=== PATIENT | male | born 1970 | race African-American/Black ===

== ENCOUNTER 2020-04-22 17:13 | Inpatient (IN) ==
[2020-04-22] MEDS ORDERED: DOCUSATE SODIUM 100 MG CAPSULE PO PRN (21:00)
[2020-04-22] MEDS ORDERED: ONDANSETRON 4 MG/2 ML VIAL IV PRN (21:00)
[2020-04-23] MEDS: ACETAMINOPHEN 325 MG TABLET PO PRN ×2 (01:26→13:03)
[2020-04-23] MEDS: ALBUTEROL INHALER 18 GM INH SCH ×6 (03:46→23:49)
[2020-04-23 06:39] LABS: Basophils % 0.1 % (0.0-0.8); Hematocrit 32.1 VOL% (42.0-52.0); Hemoglobin 10.8 GM/DL (14.0-18.0); Immature Granulocytes % 1.1 %; Immature Granulocytes Absolute 0.08 #; Lymphocytes # 1.3 10*3/uL (1.4-4.0); Lymphocytes % 17.8 % (21.2-54.2); Mean Corpuscular HGB Conc 33.6 GM/DL (32-36); Mean Corpuscular Volume 83.6 FL (87-102); Mean Platelet Volume 11.2 FL (9.6-12.0); Monocytes % 5.1 % (1.7-12.7); Neutrophils % 75.9 % (38.7-73.9); Platelet Count 212 T/CUMM (130-400); Red Blood Count 3.84 MC/CUMM (3.8-5.5); Red Cell Distribution Width 15.3 % (9.3-17.3); White Blood Count 7.4 T/CUMM (4-12)
[2020-04-23 06:59] LABS: Albumin 2.3 G/DL (3.4-5.0); Bilirubin,Total 0.8 MG/DL (0.2-1.0); Calcium 8.8 MG/DL (8.5-10.1); Osmolality,Calculated 277.8 MOS/KG (273-304)
[2020-04-23 07:02] LABS: Ferritin 1049.9 ng/ml (26-388)
[2020-04-23] MEDS ORDERED: ZINC SULFATE 220 MG CAPSULE PO SCH (09:00)
[2020-04-23] MEDS: ENOXAPARIN 40 MG/0.4 ML SYRINGE SUBCUT SCH (09:37)
[2020-04-23 13:36] LABS: Band Neutrophils 4 % (0-10); Lymphocytes 17 % (20-55); Platelet Estimate Adequate; Segmented Neutrophils 77 % (50-85); Total Cells Counted 100
[2020-04-23 13:37] LABS: Hypochromasia 2+; Microcytosis 1+; Polychromasia Slight
[2020-04-23] MEDS: HYDROXYCHLOROQUINE 200 MG TABLET PO SCH ×2 (13:51→23:51)
[2020-04-23] MEDS: cefTRIAXone 1,000 MG in SYRINGE 1 EACH IV SCH (21:55)
[2020-04-23] MEDS: ASCORBIC ACID 500 MG TABLET PO SCH (23:51)
[2020-04-24] MEDS: ALBUTEROL INHALER 18 GM INH SCH ×6 (03:00→22:42)
[2020-04-24 06:31] LABS: Basophils % 0.3 % (0.0-0.8); Eosinophils % 0.3 % (0.00-10.9); Hematocrit 33.4 VOL% (42.0-52.0); Hemoglobin 11.2 GM/DL (14.0-18.0); Immature Granulocytes % 1.2 %; Immature Granulocytes Absolute 0.09 #; Lymphocytes # 1.6 10*3/uL (1.4-4.0); Lymphocytes % 21.3 % (21.2-54.2); Mean Corpuscular HGB Conc 33.5 GM/DL (32-36); Mean Corpuscular Volume 83.7 FL (87-102); Neutrophils % 69.9 % (38.7-73.9); Platelet Count 247 T/CUMM (130-400); Red Blood Count 3.99 MC/CUMM (3.8-5.5); Red Cell Distribution Width 15.2 % (9.3-17.3); White Blood Count 7.4 T/CUMM (4-12)
[2020-04-24 07:04] LABS: Band Neutrophils 2 % (0-10); Hypochromasia 1+; Lymphocytes 30 % (20-55); Segmented Neutrophils 65 % (50-85); Total Cells Counted 100
[2020-04-24 07:05] LABS: Microcytosis 1+; Platelet Estimate Normal
[2020-04-24] MEDS ORDERED: CHOLECALCIFEROL 1,000 UNIT TABLET PO SCH (09:00)
[2020-04-24] MEDS: ENOXAPARIN 40 MG/0.4 ML SYRINGE SUBCUT SCH (09:07)
[2020-04-24 09:29] LABS: Ferritin 1134.3 ng/ml (26-388)
[2020-04-24] MEDS: HYDROXYCHLOROQUINE 200 MG TABLET PO SCH (13:35)
[2020-04-24] MEDS: ASCORBIC ACID 500 MG TABLET PO SCH (13:36)
[2020-04-24] MEDS: DEXTROSE 5% 1,000 ML IV SCH (14:58)
[2020-04-24] MEDS: ACETAMINOPHEN 325 MG TABLET PO PRN (16:49)
[2020-04-24] MEDS: cefTRIAXone 1,000 MG in SYRINGE 1 EACH IV SCH (22:35)
[2020-04-25] MEDS: ALBUTEROL INHALER 18 GM INH SCH ×6 (03:23→23:45)
[2020-04-25] MEDS: ACETAMINOPHEN 325 MG TABLET PO PRN ×3 (05:25→20:45)
[2020-04-25] MEDS: CYCLOBENZAPRINE 10 MG TABLET PO PRN (05:26)
[2020-04-25 07:06] LABS: Ferritin 1149.4 ng/ml (26-388)
[2020-04-25 07:08] LABS: Risk Ratio 8.47
[2020-04-25] MEDS: DEXTROSE 5% 1,000 ML IV SCH ×2 (08:40→22:42)
[2020-04-25] MEDS: ENOXAPARIN 40 MG/0.4 ML SYRINGE SUBCUT SCH (08:41)
[2020-04-25] MEDS: HYDROXYCHLOROQUINE 200 MG TABLET PO SCH (12:47)
[2020-04-25] MEDS: cefTRIAXone 1,000 MG in SYRINGE 1 EACH IV SCH (20:41)
[2020-04-25] MEDS: APIXABAN 5 MG TABLET PO SCH (20:45)
[2020-04-26] MEDS: ALBUTEROL INHALER 18 GM INH SCH ×6 (03:54→23:42)
[2020-04-26] MEDS: ACETAMINOPHEN 325 MG TABLET PO PRN ×3 (04:49→21:14)
[2020-04-26 06:16] LABS: Basophils % 0.2 % (0.0-0.8); Eosinophils % 0.1 % (0.00-10.9); Hematocrit 33.6 VOL% (42.0-52.0); Hemoglobin 11.5 GM/DL (14.0-18.0); Immature Granulocytes % 1.2 %; Immature Granulocytes Absolute 0.11 #; Lymphocytes # 1.2 10*3/uL (1.4-4.0); Lymphocytes % 13.1 % (21.2-54.2); Mean Corpuscular HGB Conc 34.2 GM/DL (32-36); Mean Corpuscular Volume 81.2 FL (87-102); Mean Platelet Volume 11.3 FL (9.6-12.0); Monocytes % 7.4 % (1.7-12.7); Platelet Count 348 T/CUMM (130-400); Red Blood Count 4.14 MC/CUMM (3.8-5.5); Red Cell Distribution Width 14.8 % (9.3-17.3); White Blood Count 9.2 T/CUMM (4-12)
[2020-04-26 06:36] LABS: Calcium 8.7 MG/DL (8.5-10.1); Osmolality,Calculated 267.4 MOS/KG (273-304)
[2020-04-26 06:43] LABS: Band Neutrophils 1 % (0-10); Ferritin 1413.2 ng/ml (26-388); Lymphocytes 8 % (20-55); Nucleated Red Blood Cells 1 (0-5); Platelet Estimate Adequate; Segmented Neutrophils 88 % (50-85); Total Cells Counted 100
[2020-04-26 06:44] LABS: Hypochromasia Slight; Microcytosis 1+
[2020-04-26] MEDS: APIXABAN 5 MG TABLET PO SCH ×2 (08:08→21:12)
[2020-04-26] MEDS: DEXTROSE 5% 1,000 ML IV SCH (12:26)
[2020-04-26] MEDS: amLODIPine 10 MG TABLET PO SCH (16:30)
[2020-04-26] MEDS: cefTRIAXone 1,000 MG in SYRINGE 1 EACH IV SCH (21:12)
[2020-04-26] MEDS: CYCLOBENZAPRINE 10 MG TABLET PO PRN (21:13)
[2020-04-27] MEDS: ALBUTEROL INHALER 18 GM INH SCH ×5 (04:46→20:16)
[2020-04-27 05:04] LABS: Basophils % 0.2 % (0.0-0.8); Eosinophils % 0.1 % (0.00-10.9); Hematocrit 30.4 VOL% (42.0-52.0); Hemoglobin 10.3 GM/DL (14.0-18.0); Immature Granulocytes % 0.9 %; Immature Granulocytes Absolute 0.11 #; Lymphocytes # 1.4 10*3/uL (1.4-4.0); Lymphocytes % 11.6 % (21.2-54.2); Mean Corpuscular HGB Conc 33.9 GM/DL (32-36); Mean Corpuscular Volume 81.7 FL (87-102); Mean Platelet Volume 11.1 FL (9.6-12.0); Monocytes % 7.4 % (1.7-12.7); Neutrophils % 79.8 % (38.7-73.9); Platelet Count 364 T/CUMM (130-400); Red Blood Count 3.72 MC/CUMM (3.8-5.5); Red Cell Distribution Width 15.3 % (9.3-17.3); White Blood Count 12.3 T/CUMM (4-12)
[2020-04-27 05:46] LABS: Hypochromasia 1+; Ovalocytes Slight; Platelet Estimate Adequate
[2020-04-27 05:47] LABS: Microcytosis 1+
[2020-04-27 05:48] LABS: Ferritin 1156.6 ng/ml (26-388)
[2020-04-27 06:09] LABS: Calcium 8.7 MG/DL (8.5-10.1); Osmolality,Calculated 270.2 MOS/KG (273-304)
[2020-04-27] MEDS: CHOLECALCIFEROL 1,000 UNIT TABLET PO SCH (09:37)
[2020-04-27] MEDS: APIXABAN 5 MG TABLET PO SCH ×2 (09:37→20:17)
[2020-04-27] MEDS: amLODIPine 10 MG TABLET PO SCH (09:37)
[2020-04-27] MEDS: ACETAMINOPHEN 325 MG TABLET PO PRN ×2 (11:01→17:31)
[2020-04-27] MEDS: DEXTROSE 5% 1,000 ML IV SCH (15:33)
[2020-04-27] MEDS: cefTRIAXone 1,000 MG in SYRINGE 1 EACH IV SCH (20:17)
[2020-04-28] MEDS: ALBUTEROL INHALER 18 GM INH SCH ×7 (01:00→23:34)
[2020-04-28] MEDS: DEXTROSE 5% 1,000 ML IV SCH ×2 (01:23→14:58)
[2020-04-28 07:19] LABS: Basophils % 0.2 % (0.0-0.8); Eosinophils % 0.1 % (0.00-10.9); Hematocrit 31.2 VOL% (42.0-52.0); Hemoglobin 10.7 GM/DL (14.0-18.0); Immature Granulocytes % 1.3 %; Immature Granulocytes Absolute 0.14 #; Lymphocytes # 0.9 10*3/uL (1.4-4.0); Lymphocytes % 8.6 % (21.2-54.2); Mean Corpuscular HGB Conc 34.3 GM/DL (32-36); Mean Corpuscular Volume 81.9 FL (87-102); Mean Platelet Volume 10.8 FL (9.6-12.0); Monocytes % 8.7 % (1.7-12.7); Neutrophils % 81.1 % (38.7-73.9); Platelet Count 372 T/CUMM (130-400); Red Blood Count 3.81 MC/CUMM (3.8-5.5); Red Cell Distribution Width 15.2 % (9.3-17.3); White Blood Count 10.9 T/CUMM (4-12)
[2020-04-28 07:32] LABS: Calcium 9.1 MG/DL (8.5-10.1); Osmolality,Calculated 261.9 MOS/KG (273-304)
[2020-04-28 07:47] LABS: Ferritin 1711.6 ng/ml (26-388)
[2020-04-28 08:12] LABS: Platelet Estimate Increased; Schistocytes Slight; Target Cells Slight
[2020-04-28] MEDS: APIXABAN 5 MG TABLET PO SCH ×2 (08:15→20:05)
[2020-04-28] MEDS: CHOLECALCIFEROL 1,000 UNIT TABLET PO SCH (08:15)
[2020-04-28] MEDS: amLODIPine 10 MG TABLET PO SCH (08:15)
[2020-04-28] MEDS: ATORVASTATIN 40 MG TABLET PO SCH (08:15)
[2020-04-28] MEDS: ACETAMINOPHEN 325 MG TABLET PO PRN ×3 (08:20→20:06)
[2020-04-29] MEDS: ACETAMINOPHEN 325 MG TABLET PO PRN ×3 (01:20→20:29)
[2020-04-29] MEDS: DEXTROSE 5% 1,000 ML IV SCH ×2 (04:26→18:43)
[2020-04-29] MEDS: ALBUTEROL INHALER 18 GM INH SCH ×6 (04:26→22:04)
[2020-04-29 05:32] LABS: Basophils % 0.2 % (0.0-0.8); Eosinophils % 0.1 % (0.00-10.9); Hemoglobin 9.6 GM/DL (14.0-18.0); Immature Granulocytes % 1.3 %; Immature Granulocytes Absolute 0.17 #; Lymphocytes # 1.4 10*3/uL (1.4-4.0); Lymphocytes % 11.1 % (21.2-54.2); Mean Corpuscular HGB Conc 34.3 GM/DL (32-36); Mean Corpuscular Volume 80.9 FL (87-102); Mean Platelet Volume 11.4 FL (9.6-12.0); Neutrophils % 77.3 % (38.7-73.9); Platelet Count 389 T/CUMM (130-400); Red Blood Count 3.46 MC/CUMM (3.8-5.5); Red Cell Distribution Width 15.4 % (9.3-17.3); White Blood Count 12.6 T/CUMM (4-12)
[2020-04-29 05:55] LABS: Calcium 8.8 MG/DL (8.5-10.1); Osmolality,Calculated 265.7 MOS/KG (273-304)
[2020-04-29] MEDS: amLODIPine 10 MG TABLET PO SCH (08:40)
[2020-04-29] MEDS: CHOLECALCIFEROL 1,000 UNIT TABLET PO SCH (08:40)
[2020-04-29] MEDS: APIXABAN 5 MG TABLET PO SCH ×2 (08:40→20:29)
[2020-04-29] MEDS: CYCLOBENZAPRINE 10 MG TABLET PO PRN (08:40)
[2020-04-29] MEDS: ATORVASTATIN 40 MG TABLET PO SCH (08:40)
[2020-04-29] MEDS: methylPREDNISolone SOD SUC 125 MG/2 ML VIAL IV SCH (12:25)
[2020-04-30] MEDS: ALBUTEROL INHALER 18 GM INH SCH ×5 (04:18→20:10)
[2020-04-30] MEDS: DEXTROSE 5% 1,000 ML IV SCH ×2 (05:24→20:10)
[2020-04-30 06:50] LABS: Basophils % 0.1 % (0.0-0.8); Hematocrit 29.1 VOL% (42.0-52.0); Hemoglobin 9.7 GM/DL (14.0-18.0); Immature Granulocytes % 0.9 %; Immature Granulocytes Absolute 0.13 #; Lymphocytes # 0.9 10*3/uL (1.4-4.0); Lymphocytes % 6.4 % (21.2-54.2); Mean Corpuscular HGB Conc 33.3 GM/DL (32-36); Mean Corpuscular Volume 82.9 FL (87-102); Mean Platelet Volume 11.1 FL (9.6-12.0); Monocytes % 6.8 % (1.7-12.7); Neutrophils % 85.8 % (38.7-73.9); Platelet Count 445 T/CUMM (130-400); Red Blood Count 3.51 MC/CUMM (3.8-5.5); Red Cell Distribution Width 15.5 % (9.3-17.3); White Blood Count 14.1 T/CUMM (4-12)
[2020-04-30 07:25] LABS: Calcium 8.9 MG/DL (8.5-10.1); Osmolality,Calculated 268.8 MOS/KG (273-304)
[2020-04-30] MEDS: amLODIPine 10 MG TABLET PO SCH (09:05)
[2020-04-30] MEDS: ATORVASTATIN 40 MG TABLET PO SCH (09:05)
[2020-04-30] MEDS: CHOLECALCIFEROL 1,000 UNIT TABLET PO SCH (09:05)
[2020-04-30] MEDS: APIXABAN 5 MG TABLET PO SCH ×2 (09:05→20:10)
[2020-04-30] MEDS: methylPREDNISolone SOD SUC 125 MG/2 ML VIAL IV SCH (09:05)
[2020-04-30 09:48] LABS: Ferritin 2339.8 ng/ml (26-388)
[2020-04-30] MEDS: ACETAMINOPHEN 325 MG TABLET PO PRN (20:10)
[2020-05-01] MEDS: ALBUTEROL INHALER 18 GM INH SCH ×7 (00:33→22:41)
[2020-05-01 05:26] LABS: Basophils % 0.1 % (0.0-0.8); Hematocrit 27.8 VOL% (42.0-52.0); Hemoglobin 9.3 GM/DL (14.0-18.0); Immature Granulocytes % 0.9 %; Lymphocytes # 1.3 10*3/uL (1.4-4.0); Lymphocytes % 11.4 % (21.2-54.2); Mean Corpuscular HGB Conc 33.5 GM/DL (32-36); Mean Platelet Volume 11.1 FL (9.6-12.0); Monocytes % 7.4 % (1.7-12.7); Neutrophils % 80.2 % (38.7-73.9); Platelet Count 468 T/CUMM (130-400); Red Blood Count 3.35 MC/CUMM (3.8-5.5); Red Cell Distribution Width 15.7 % (9.3-17.3); White Blood Count 11.7 T/CUMM (4-12)
[2020-05-01 05:54] LABS: Calcium 9.1 MG/DL (8.5-10.1); Osmolality,Calculated 278.4 MOS/KG (273-304)
[2020-05-01 05:55] LABS: Hypochromasia 1+; Lymphocytes 11 % (20-55); Platelet Estimate Adequate; Segmented Neutrophils 83 % (50-85); Total Cells Counted 100
[2020-05-01 05:56] LABS: Ovalocytes Slight
[2020-05-01 07:11] LABS: Ferritin 2292.8 ng/ml (26-388)
[2020-05-01] MEDS: APIXABAN 5 MG TABLET PO SCH (09:34)
[2020-05-01] MEDS: predniSONE 20 MG TABLET PO SCH (09:34)
[2020-05-01] MEDS: amLODIPine 10 MG TABLET PO SCH (09:35)
[2020-05-01] MEDS: ATORVASTATIN 40 MG TABLET PO SCH (09:35)
[2020-05-01] MEDS: CHOLECALCIFEROL 1,000 UNIT TABLET PO SCH (09:35)
[2020-05-01] MEDS: allopurinoL 100 MG TABLET PO SCH (09:35)
[2020-05-01] MEDS: DEXTROSE 5% 1,000 ML IV SCH (12:57)
[2020-05-01] MEDS: WARFARIN 5 MG TABLET PO SCH (21:17)
[2020-05-01] MEDS: ENOXAPARIN 100 MG/ML SYRINGE SUBCUT SCH (21:18)
[2020-05-01] MEDS: CYCLOBENZAPRINE 10 MG TABLET PO PRN (21:18)
[2020-05-02] MEDS: hydrALAZINE 20 MG/1 ML VIAL IV PRN (00:57)
[2020-05-02] MEDS: ACETAMINOPHEN 325 MG TABLET PO PRN (00:58)
[2020-05-02] MEDS: ALBUTEROL INHALER 18 GM INH SCH ×2 (03:50→08:26)
[2020-05-02 05:37] LABS: Basophils % 0.1 % (0.0-0.8); Hematocrit 29.5 VOL% (42.0-52.0); Immature Granulocytes % 1.1 %; Immature Granulocytes Absolute 0.12 #; Lymphocytes # 2.1 10*3/uL (1.4-4.0); Lymphocytes % 19.4 % (21.2-54.2); Mean Corpuscular HGB Conc 33.9 GM/DL (32-36); Mean Corpuscular Volume 82.2 FL (87-102); Mean Platelet Volume 11.3 FL (9.6-12.0); Monocytes % 9.1 % (1.7-12.7); Neutrophils % 70.3 % (38.7-73.9); Platelet Count 531 T/CUMM (130-400); Red Blood Count 3.59 MC/CUMM (3.8-5.5); Red Cell Distribution Width 15.7 % (9.3-17.3); White Blood Count 10.9 T/CUMM (4-12)
[2020-05-02 06:04] LABS: Hypochromasia 1+; Platelet Estimate Increased
[2020-05-02 06:09] LABS: Calcium 9.2 MG/DL (8.5-10.1); Osmolality,Calculated 276.2 MOS/KG (273-304)
[2020-05-02] MEDS: allopurinoL 100 MG TABLET PO SCH (08:26)
[2020-05-02] MEDS: predniSONE 20 MG TABLET PO SCH (08:26)
[2020-05-02] MEDS: amLODIPine 10 MG TABLET PO SCH (08:26)
[2020-05-02] MEDS: ATORVASTATIN 40 MG TABLET PO SCH (08:26)
[2020-05-02] MEDS: ENOXAPARIN 100 MG/ML SYRINGE SUBCUT SCH ×2 (08:27→20:54)
[2020-05-02] MEDS: CHOLECALCIFEROL 1,000 UNIT TABLET PO SCH (08:27)
[2020-05-02] MEDS ORDERED: ALBUTEROL INHALER 18 GM INH PRN (10:11)
[2020-05-02] MEDS: WARFARIN 5 MG TABLET PO SCH (20:54)
[2020-05-03] MEDS: hydrALAZINE 20 MG/1 ML VIAL IV PRN (06:15)
[2020-05-03 07:03] LABS: Basophils % 0.2 % (0.0-0.8); Eosinophils % 0.2 % (0.00-10.9); Hematocrit 33.9 VOL% (42.0-52.0); Hemoglobin 11.4 GM/DL (14.0-18.0); Immature Granulocytes Absolute 0.13 #; Lymphocytes # 2.9 10*3/uL (1.4-4.0); Lymphocytes % 21.7 % (21.2-54.2); Mean Corpuscular HGB Conc 33.6 GM/DL (32-36); Mean Corpuscular Volume 83.1 FL (87-102); Monocytes % 9.2 % (1.7-12.7); Neutrophils % 67.7 % (38.7-73.9); Platelet Count 563 T/CUMM (130-400); Red Blood Count 4.08 MC/CUMM (3.8-5.5); Red Cell Distribution Width 15.8 % (9.3-17.3); White Blood Count 13.3 T/CUMM (4-12)
[2020-05-03 07:05] LABS: INR 1.2; PT Patient Result 12.5 SECS (9.8-11.9)
[2020-05-03 07:19] LABS: Calcium 9.6 MG/DL (8.5-10.1); Osmolality,Calculated 273.2 MOS/KG (273-304)
[2020-05-03 07:29] LABS: Lymphocytes 19 % (20-55); Platelet Estimate Increased; Segmented Neutrophils 72 % (50-85); Total Cells Counted 100
[2020-05-03 07:30] LABS: Hypochromasia 1+; Microcytosis Slight; Ovalocytes Slight
[2020-05-03] MEDS: CHOLECALCIFEROL 1,000 UNIT TABLET PO SCH ×2 (07:55→08:37)
[2020-05-03] MEDS: ATORVASTATIN 40 MG TABLET PO SCH ×2 (07:56→08:37)
[2020-05-03] MEDS: allopurinoL 100 MG TABLET PO SCH ×2 (07:56→08:37)
[2020-05-03] MEDS: amLODIPine 10 MG TABLET PO SCH ×2 (07:56→08:37)
[2020-05-03] MEDS: ENOXAPARIN 100 MG/ML SYRINGE SUBCUT SCH ×3 (07:57→20:40)
[2020-05-03] MEDS: CYCLOBENZAPRINE 10 MG TABLET PO PRN (12:30)
[2020-05-03] MEDS: ACETAMINOPHEN 325 MG TABLET PO PRN (20:40)
[2020-05-03] MEDS: WARFARIN 5 MG TABLET PO SCH (20:40)
[2020-05-04] MEDS: ACETAMINOPHEN 325 MG TABLET PO PRN ×2 (04:45→20:53)
[2020-05-04 06:02] LABS: Basophils % 0.2 % (0.0-0.8); Eosinophils % 0.2 % (0.00-10.9); Hematocrit 33.4 VOL% (42.0-52.0); Immature Granulocytes % 0.7 %; Immature Granulocytes Absolute 0.08 #; Lymphocytes # 1.8 10*3/uL (1.4-4.0); Lymphocytes % 16.2 % (21.2-54.2); Mean Corpuscular HGB Conc 32.9 GM/DL (32-36); Mean Corpuscular Volume 83.5 FL (87-102); Mean Platelet Volume 10.8 FL (9.6-12.0); Monocytes % 10.4 % (1.7-12.7); Neutrophils % 72.3 % (38.7-73.9); Platelet Count 563 T/CUMM (130-400); Red Cell Distribution Width 15.9 % (9.3-17.3); White Blood Count 11.4 T/CUMM (4-12)
[2020-05-04 06:25] LABS: INR 1.5; PT Patient Result 15.6 SECS (9.8-11.9)
[2020-05-04 06:30] LABS: Calcium 9.5 MG/DL (8.5-10.1); Osmolality,Calculated 273.4 MOS/KG (273-304)
[2020-05-04] MEDS: amLODIPine 10 MG TABLET PO SCH (08:57)
[2020-05-04] MEDS: CHOLECALCIFEROL 1,000 UNIT TABLET PO SCH (08:57)
[2020-05-04] MEDS: ATORVASTATIN 40 MG TABLET PO SCH (08:57)
[2020-05-04] MEDS: ENOXAPARIN 100 MG/ML SYRINGE SUBCUT SCH ×2 (08:58→20:43)
[2020-05-04] MEDS: allopurinoL 100 MG TABLET PO SCH (08:58)
[2020-05-04] MEDS ORDERED: LOSARTAN 50 MG TABLET ONE (09:01)
[2020-05-04] MEDS: LOSARTAN 50 MG TABLET PO SCH (09:02)
[2020-05-04] MEDS: WARFARIN 5 MG TABLET PO SCH (20:43)
[2020-05-04] MEDS ORDERED: carvediloL 3.125 MG TABLET PO SCH (21:00)
[2020-05-05 06:12] LABS: Basophils % 0.3 % (0.0-0.8); Eosinophils # 0.1 10*3/uL (0.0-0.87); Eosinophils % 0.5 % (0.00-10.9); Hematocrit 29.9 VOL% (42.0-52.0); Hemoglobin 10.2 GM/DL (14.0-18.0); Immature Granulocytes % 0.9 %; Immature Granulocytes Absolute 0.11 #; Lymphocytes % 17.2 % (21.2-54.2); Mean Corpuscular HGB Conc 34.1 GM/DL (32-36); Mean Corpuscular Volume 81.9 FL (87-102); Mean Platelet Volume 10.7 FL (9.6-12.0); Monocytes % 10.9 % (1.7-12.7); Neutrophils % 70.2 % (38.7-73.9); Platelet Count 483 T/CUMM (130-400); Red Blood Count 3.65 MC/CUMM (3.8-5.5); Red Cell Distribution Width 15.9 % (9.3-17.3); White Blood Count 11.9 T/CUMM (4-12)
[2020-05-05 06:24] LABS: INR 1.7; PT Patient Result 17.5 SECS (9.8-11.9)
[2020-05-05 06:33] LABS: Calcium 9.4 MG/DL (8.5-10.1); Osmolality,Calculated 272.4 MOS/KG (273-304)
[2020-05-05] MEDS: amLODIPine 10 MG TABLET PO SCH (09:56)
[2020-05-05] MEDS: CHOLECALCIFEROL 1,000 UNIT TABLET PO SCH (09:56)
[2020-05-05] MEDS: LOSARTAN 50 MG TABLET PO SCH (09:56)
[2020-05-05] MEDS: carvediloL 6.25 MG TABLET PO SCH ×2 (09:56→20:01)
[2020-05-05] MEDS: ATORVASTATIN 40 MG TABLET PO SCH (09:56)
[2020-05-05] MEDS: allopurinoL 100 MG TABLET PO SCH (09:56)
[2020-05-05] MEDS: ENOXAPARIN 100 MG/ML SYRINGE SUBCUT SCH ×2 (09:56→20:01)
[2020-05-05] MEDS: WARFARIN 5 MG TABLET PO SCH (20:01)
[2020-05-05] MEDS: ACETAMINOPHEN 325 MG TABLET PO PRN (20:01)
[2020-05-06 06:16] LABS: Basophils % 0.3 % (0.0-0.8); Eosinophils # 0.1 10*3/uL (0.0-0.87); Eosinophils % 0.7 % (0.00-10.9); Hematocrit 28.6 VOL% (42.0-52.0); Hemoglobin 9.7 GM/DL (14.0-18.0); Immature Granulocytes % 1.1 %; Immature Granulocytes Absolute 0.13 #; Lymphocytes # 1.7 10*3/uL (1.4-4.0); Lymphocytes % 14.8 % (21.2-54.2); Mean Corpuscular HGB Conc 33.9 GM/DL (32-36); Mean Corpuscular Volume 82.9 FL (87-102); Mean Platelet Volume 10.5 FL (9.6-12.0); Monocytes % 10.5 % (1.7-12.7); Neutrophils % 72.6 % (38.7-73.9); Platelet Count 472 T/CUMM (130-400); Red Blood Count 3.45 MC/CUMM (3.8-5.5); Red Cell Distribution Width 16.1 % (9.3-17.3); White Blood Count 11.8 T/CUMM (4-12)
[2020-05-06 06:23] LABS: Calcium 9.5 MG/DL (8.5-10.1); Osmolality,Calculated 274.4 MOS/KG (273-304)
[2020-05-06 06:25] LABS: INR 1.8; PT Patient Result 18.4 SECS (9.8-11.9)
[2020-05-06] MEDS: CHOLECALCIFEROL 1,000 UNIT TABLET PO SCH (09:19)
[2020-05-06] MEDS: LOSARTAN 50 MG TABLET PO SCH (09:19)
[2020-05-06] MEDS: carvediloL 6.25 MG TABLET PO SCH ×2 (09:19→20:13)
[2020-05-06] MEDS: amLODIPine 10 MG TABLET PO SCH (09:19)
[2020-05-06] MEDS: ENOXAPARIN 100 MG/ML SYRINGE SUBCUT SCH ×2 (09:20→20:13)
[2020-05-06] MEDS: allopurinoL 100 MG TABLET PO SCH (09:20)
[2020-05-06] MEDS: ATORVASTATIN 40 MG TABLET PO SCH (09:20)
[2020-05-06] MEDS: ACETAMINOPHEN 325 MG TABLET PO PRN ×3 (09:20→20:13)
[2020-05-06] MEDS: WARFARIN 5 MG TABLET PO SCH (20:13)
[2020-05-06] MEDS: CYCLOBENZAPRINE 10 MG TABLET PO PRN (20:13)
[2020-05-07] MEDS: ACETAMINOPHEN 325 MG TABLET PO PRN ×5 (00:35→21:15)
[2020-05-07 05:47] LABS: Basophils % 0.2 % (0.0-0.8); Eosinophils # 0.1 10*3/uL (0.0-0.87); Eosinophils % 0.6 % (0.00-10.9); Hematocrit 26.8 VOL% (42.0-52.0); Hemoglobin 8.7 GM/DL (14.0-18.0); Immature Granulocytes % 0.7 %; Immature Granulocytes Absolute 0.08 #; Lymphocytes # 1.8 10*3/uL (1.4-4.0); Lymphocytes % 15.9 % (21.2-54.2); Mean Corpuscular HGB Conc 32.5 GM/DL (32-36); Mean Corpuscular Volume 83.8 FL (87-102); Mean Platelet Volume 10.5 FL (9.6-12.0); Monocytes % 11.4 % (1.7-12.7); Neutrophils % 71.2 % (38.7-73.9); Platelet Count 419 T/CUMM (130-400); Red Cell Distribution Width 15.8 % (9.3-17.3); White Blood Count 11.2 T/CUMM (4-12)
[2020-05-07 06:04] LABS: INR 2.4
[2020-05-07 06:05] LABS: PT Patient Result 24.5 SECS (9.8-11.9)
[2020-05-07 06:13] LABS: Calcium 9.2 MG/DL (8.5-10.1); Osmolality,Calculated 277.2 MOS/KG (273-304)
[2020-05-07] MEDS: amLODIPine 10 MG TABLET PO SCH (09:02)
[2020-05-07] MEDS: CHOLECALCIFEROL 1,000 UNIT TABLET PO SCH (09:02)
[2020-05-07] MEDS: carvediloL 6.25 MG TABLET PO SCH ×2 (09:02→21:15)
[2020-05-07] MEDS: ATORVASTATIN 40 MG TABLET PO SCH (09:02)
[2020-05-07] MEDS: LOSARTAN 50 MG TABLET PO SCH (09:02)
[2020-05-07] MEDS: allopurinoL 100 MG TABLET PO SCH (09:02)
[2020-05-07] MEDS: WARFARIN 5 MG TABLET PO SCH (21:15)
[2020-05-07] MEDS: CYCLOBENZAPRINE 10 MG TABLET PO PRN (21:15)
[2020-05-08] MEDS: ACETAMINOPHEN 325 MG TABLET PO PRN ×2 (00:45→21:25)
[2020-05-08 05:43] LABS: Basophils % 0.2 % (0.0-0.8); Eosinophils # 0.1 10*3/uL (0.0-0.87); Eosinophils % 0.7 % (0.00-10.9); Hemoglobin 9.4 GM/DL (14.0-18.0); Immature Granulocytes % 0.4 %; Immature Granulocytes Absolute 0.04 #; Lymphocytes # 1.5 10*3/uL (1.4-4.0); Lymphocytes % 14.9 % (21.2-54.2); Mean Corpuscular HGB Conc 32.4 GM/DL (32-36); Mean Corpuscular Volume 83.8 FL (87-102); Mean Platelet Volume 10.1 FL (9.6-12.0); Monocytes % 9.2 % (1.7-12.7); Neutrophils % 74.6 % (38.7-73.9); Platelet Count 430 T/CUMM (130-400); Red Blood Count 3.46 MC/CUMM (3.8-5.5); Red Cell Distribution Width 15.9 % (9.3-17.3)
[2020-05-08 05:54] LABS: INR 2.5
[2020-05-08 05:56] LABS: PT Patient Result 25.8 SECS (9.8-11.9)
[2020-05-08 06:01] LABS: Calcium 9.5 MG/DL (8.5-10.1); Osmolality,Calculated 267.8 MOS/KG (273-304)
[2020-05-08] MEDS: carvediloL 12.5 MG TABLET PO SCH ×2 (08:48→21:25)
[2020-05-08] MEDS: ATORVASTATIN 40 MG TABLET PO SCH (08:49)
[2020-05-08] MEDS: LOSARTAN 50 MG TABLET PO SCH (08:49)
[2020-05-08] MEDS: amLODIPine 10 MG TABLET PO SCH (08:49)
[2020-05-08] MEDS: CHOLECALCIFEROL 1,000 UNIT TABLET PO SCH (08:49)
[2020-05-08] MEDS: allopurinoL 100 MG TABLET PO SCH (08:49)
[2020-05-08] MEDS: CYCLOBENZAPRINE 10 MG TABLET PO PRN (21:24)
[2020-05-08] MEDS: WARFARIN 5 MG TABLET PO SCH (21:25)
[2020-05-09 05:45] LABS: Basophils % 0.3 % (0.0-0.8); Eosinophils % 0.3 % (0.00-10.9); Hematocrit 26.3 VOL% (42.0-52.0); Hemoglobin 8.7 GM/DL (14.0-18.0); Immature Granulocytes % 0.6 %; Immature Granulocytes Absolute 0.05 #; Lymphocytes # 1.3 10*3/uL (1.4-4.0); Lymphocytes % 13.8 % (21.2-54.2); Mean Corpuscular HGB Conc 33.1 GM/DL (32-36); Mean Corpuscular Volume 82.7 FL (87-102); Mean Platelet Volume 10.2 FL (9.6-12.0); Monocytes % 8.6 % (1.7-12.7); Neutrophils % 76.4 % (38.7-73.9); Platelet Count 404 T/CUMM (130-400); Red Blood Count 3.18 MC/CUMM (3.8-5.5); Red Cell Distribution Width 15.7 % (9.3-17.3); White Blood Count 9.1 T/CUMM (4-12)
[2020-05-09 07:14] LABS: Calcium 9.3 MG/DL (8.5-10.1); Osmolality,Calculated 271.4 MOS/KG (273-304)
[2020-05-09] MEDS: CHOLECALCIFEROL 1,000 UNIT TABLET PO SCH (09:32)
[2020-05-09] MEDS: LOSARTAN 50 MG TABLET PO SCH (09:32)
[2020-05-09] MEDS: allopurinoL 100 MG TABLET PO SCH (09:32)
[2020-05-09] MEDS: ATORVASTATIN 40 MG TABLET PO SCH (09:33)
[2020-05-09] MEDS: carvediloL 12.5 MG TABLET PO SCH ×2 (09:33→21:14)
[2020-05-09] MEDS: amLODIPine 10 MG TABLET PO SCH (09:33)
[2020-05-09] MEDS: ACETAMINOPHEN 325 MG TABLET PO PRN ×2 (13:19→21:14)
[2020-05-09] MEDS: WARFARIN 5 MG TABLET PO SCH (21:14)
[2020-05-10] MEDS: ACETAMINOPHEN 325 MG TABLET PO PRN ×2 (04:30→16:06)
[2020-05-10 05:34] LABS: Basophils # 0.1 10*3/uL (0.0-0.2); Basophils % 0.4 % (0.0-0.8); Eosinophils # 0.1 10*3/uL (0.0-0.87); Eosinophils % 0.6 % (0.00-10.9); Hematocrit 25.5 VOL% (42.0-52.0); Hemoglobin 8.5 GM/DL (14.0-18.0); Immature Granulocytes % 0.7 %; Immature Granulocytes Absolute 0.08 #; Lymphocytes # 1.4 10*3/uL (1.4-4.0); Lymphocytes % 11.5 % (21.2-54.2); Mean Corpuscular HGB Conc 33.3 GM/DL (32-36); Mean Corpuscular Volume 83.1 FL (87-102); Mean Platelet Volume 10.1 FL (9.6-12.0); Monocytes % 6.5 % (1.7-12.7); Neutrophils % 80.3 % (38.7-73.9); Platelet Count 405 T/CUMM (130-400); Red Blood Count 3.07 MC/CUMM (3.8-5.5); Red Cell Distribution Width 15.8 % (9.3-17.3); White Blood Count 11.8 T/CUMM (4-12)
[2020-05-10 05:54] LABS: Calcium 9.3 MG/DL (8.5-10.1); Osmolality,Calculated 270.5 MOS/KG (273-304)
[2020-05-10 09:09] LABS: INR 3.6; PT Patient Result 35.8 SECS (9.8-11.9)
[2020-05-10] MEDS: CHOLECALCIFEROL 1,000 UNIT TABLET PO SCH (09:19)
[2020-05-10] MEDS: amLODIPine 10 MG TABLET PO SCH (09:19)
[2020-05-10] MEDS: ATORVASTATIN 40 MG TABLET PO SCH (09:20)
[2020-05-10] MEDS: LOSARTAN 50 MG TABLET PO SCH (09:20)
[2020-05-10] MEDS: allopurinoL 100 MG TABLET PO SCH (09:20)
[2020-05-10] MEDS: carvediloL 12.5 MG TABLET PO SCH ×2 (09:20→21:54)
[2020-05-10] MEDS: CYCLOBENZAPRINE 10 MG TABLET PO PRN (16:06)
[2020-05-11 06:23] LABS: Uric Acid 7.5 MG/DL (3.5-7.2)
[2020-05-11] MEDS: CYCLOBENZAPRINE 10 MG TABLET PO PRN ×2 (08:18→15:55)
[2020-05-11] MEDS: ACETAMINOPHEN 325 MG TABLET PO PRN ×3 (08:19→21:09)
[2020-05-11] MEDS: amLODIPine 10 MG TABLET PO SCH (08:20)
[2020-05-11] MEDS: CHOLECALCIFEROL 1,000 UNIT TABLET PO SCH (08:20)
[2020-05-11] MEDS: LOSARTAN 50 MG TABLET PO SCH (08:20)
[2020-05-11] MEDS: allopurinoL 100 MG TABLET PO SCH (08:20)
[2020-05-11] MEDS: ATORVASTATIN 40 MG TABLET PO SCH (08:21)
[2020-05-11] MEDS: carvediloL 12.5 MG TABLET PO SCH ×2 (08:21→21:09)
[2020-05-11 09:45] LABS: Lymphocytes,Synovial Fluid 9 %; Neutrophils,Synovial Fluid 87 %
[2020-05-11 09:48] LABS: Cholesterol Crystals None Seen /LPF
[2020-05-11 11:05] LABS: Amorphous Crystals,Urine Occasional /HPF (Few); Apearance,Urine Slightly Hazy (Clear); Bilirubin,Urine Negative (Negative); Blood, Urine Negative (Negative); Glucose,Urine (UA) Negative (Negative); Ketones,Urine Negative (Negative); Mucus,Urine Occasional /LPF (Occasional); Nitrite,Urine Negative (Negative); Protein,Urine 100 MG/DL; RBC,Urine 1 /HPF (0-4); Squamous Epithelial Cell,Urine Occasional /HPF (0-10); Urine Color Amber (Yellow); Urine Specific Gravity 1.017 (1.001-1.035); WBC,Urine 2 /HPF (0-6)
[2020-05-11 17:32] LABS: Basophils % 0.4 % (0.0-0.8); Eosinophils % 0.3 % (0.00-10.9); Hematocrit 25.3 VOL% (42.0-52.0); Hemoglobin 8.4 GM/DL (14.0-18.0); Immature Granulocytes % 0.5 %; Immature Granulocytes Absolute 0.06 #; Lymphocytes # 1.2 10*3/uL (1.4-4.0); Lymphocytes % 10.7 % (21.2-54.2); Mean Corpuscular HGB Conc 33.2 GM/DL (32-36); Mean Corpuscular Volume 81.9 FL (87-102); Mean Platelet Volume 10.4 FL (9.6-12.0); Monocytes % 7.4 % (1.7-12.7); Neutrophils % 80.7 % (38.7-73.9); Platelet Count 408 T/CUMM (130-400); Red Blood Count 3.09 MC/CUMM (3.8-5.5); Red Cell Distribution Width 15.7 % (9.3-17.3); White Blood Count 11.3 T/CUMM (4-12)
[2020-05-11 17:52] LABS: Calcium 9.6 MG/DL (8.5-10.1)
[2020-05-11] MEDS ORDERED: WARFARIN 4 MG TABLET PO SCH (21:00)
[2020-05-11] MEDS: VANCOMYCIN INJ 1,500 MG in SODIUM CHLORIDE 0.9% 500 ML IV SCH (21:09)
[2020-05-12 05:21] LABS: Basophils % 0.3 % (0.0-0.8); Eosinophils % 0.3 % (0.00-10.9); Hematocrit 24.3 VOL% (42.0-52.0); Hemoglobin 8.1 GM/DL (14.0-18.0); Immature Granulocytes % 0.5 %; Immature Granulocytes Absolute 0.06 #; Lymphocytes # 1.3 10*3/uL (1.4-4.0); Lymphocytes % 11.4 % (21.2-54.2); Mean Corpuscular HGB Conc 33.3 GM/DL (32-36); Mean Corpuscular Volume 82.1 FL (87-102); Mean Platelet Volume 10.7 FL (9.6-12.0); Monocytes % 6.7 % (1.7-12.7); Neutrophils % 80.8 % (38.7-73.9); Platelet Count 402 T/CUMM (130-400); Red Blood Count 2.96 MC/CUMM (3.8-5.5); Red Cell Distribution Width 15.7 % (9.3-17.3); White Blood Count 11.8 T/CUMM (4-12)
[2020-05-12 05:37] LABS: Calcium 9.6 MG/DL (8.5-10.1); Osmolality,Calculated 280.2 MOS/KG (273-304)
[2020-05-12] MEDS: CYCLOBENZAPRINE 10 MG TABLET PO PRN ×2 (09:31→21:42)
[2020-05-12] MEDS: ACETAMINOPHEN 325 MG TABLET PO PRN ×2 (09:32→23:47)
[2020-05-12] MEDS: allopurinoL 100 MG TABLET PO SCH (09:33)
[2020-05-12] MEDS: LOSARTAN 50 MG TABLET PO SCH (09:33)
[2020-05-12] MEDS: VANCOMYCIN INJ 1,500 MG in SODIUM CHLORIDE 0.9% 500 ML IV SCH ×2 (09:34→21:41)
[2020-05-12] MEDS: ATORVASTATIN 40 MG TABLET PO SCH (09:34)
[2020-05-12] MEDS: CHOLECALCIFEROL 1,000 UNIT TABLET PO SCH (09:34)
[2020-05-12] MEDS: amLODIPine 10 MG TABLET PO SCH (09:34)
[2020-05-12] MEDS: carvediloL 12.5 MG TABLET PO SCH ×2 (09:34→21:42)
[2020-05-12 09:57] LABS: INR 4.2; PT Patient Result 41.9 SECS (9.8-11.9)
[2020-05-13] MEDS: allopurinoL 100 MG TABLET PO SCH (08:02)
[2020-05-13] MEDS: VANCOMYCIN INJ 1,500 MG in SODIUM CHLORIDE 0.9% 500 ML IV SCH ×2 (08:02→21:55)
[2020-05-13] MEDS: CHOLECALCIFEROL 1,000 UNIT TABLET PO SCH (08:03)
[2020-05-13] MEDS: LOSARTAN 50 MG TABLET PO SCH (08:03)
[2020-05-13] MEDS: ATORVASTATIN 40 MG TABLET PO SCH (08:03)
[2020-05-13] MEDS: carvediloL 12.5 MG TABLET PO SCH ×2 (08:03→21:37)
[2020-05-13] MEDS: amLODIPine 10 MG TABLET PO SCH (08:03)
[2020-05-13] MEDS: ACETAMINOPHEN 325 MG TABLET PO PRN ×2 (09:03→17:40)
[2020-05-14 05:52] LABS: Basophils % 0.3 % (0.0-0.8); Eosinophils % 0.3 % (0.00-10.9); Hematocrit 22.1 VOL% (42.0-52.0); Hemoglobin 7.4 GM/DL (14.0-18.0); Immature Granulocytes % 0.7 %; Immature Granulocytes Absolute 0.08 #; Lymphocytes # 1.2 10*3/uL (1.4-4.0); Lymphocytes % 9.9 % (21.2-54.2); Mean Corpuscular HGB Conc 33.5 GM/DL (32-36); Mean Corpuscular Volume 81.9 FL (87-102); Mean Platelet Volume 10.8 FL (9.6-12.0); Monocytes % 6.4 % (1.7-12.7); Neutrophils % 82.4 % (38.7-73.9); Platelet Count 396 T/CUMM (130-400); Red Cell Distribution Width 16.2 % (9.3-17.3); White Blood Count 11.8 T/CUMM (4-12)
[2020-05-14 06:00] LABS: INR 4.8
[2020-05-14 06:09] LABS: PT Patient Result 47.5 SECS (9.8-11.9)
[2020-05-14 06:38] LABS: Calcium 9.2 MG/DL (8.5-10.1); Osmolality,Calculated 284.1 MOS/KG (273-304)
[2020-05-14] MEDS: CHOLECALCIFEROL 1,000 UNIT TABLET PO SCH (08:02)
[2020-05-14] MEDS: LOSARTAN 50 MG TABLET PO SCH (08:02)
[2020-05-14] MEDS: allopurinoL 100 MG TABLET PO SCH (08:02)
[2020-05-14] MEDS: carvediloL 12.5 MG TABLET PO SCH ×2 (08:02→20:16)
[2020-05-14] MEDS: amLODIPine 10 MG TABLET PO SCH (08:03)
[2020-05-14] MEDS: ATORVASTATIN 40 MG TABLET PO SCH (08:03)
[2020-05-14] MEDS ORDERED: PHYTONADIONE 5 MG/5 ML ORAL.SYR PO ONE (10:26)
[2020-05-14] MEDS: VANCOMYCIN INJ 1,500 MG in SODIUM CHLORIDE 0.9% 500 ML IV SCH (13:34)
[2020-05-15 05:40] LABS: Basophils % 0.3 % (0.0-0.8); Eosinophils % 0.4 % (0.00-10.9); Hematocrit 20.4 VOL% (42.0-52.0); Hemoglobin 6.7 GM/DL (14.0-18.0); Immature Granulocytes % 0.5 %; Immature Granulocytes Absolute 0.05 #; Lymphocytes # 1.3 10*3/uL (1.4-4.0); Lymphocytes % 11.7 % (21.2-54.2); Mean Corpuscular HGB Conc 32.8 GM/DL (32-36); Mean Corpuscular Volume 80.6 FL (87-102); Mean Platelet Volume 10.5 FL (9.6-12.0); Monocytes % 7.2 % (1.7-12.7); Neutrophils % 79.9 % (38.7-73.9); Platelet Count 406 T/CUMM (130-400); Red Blood Count 2.53 MC/CUMM (3.8-5.5)
[2020-05-15 06:01] LABS: Calcium 9.4 MG/DL (8.5-10.1)
[2020-05-15] MEDS ORDERED: SODIUM CHLORIDE 0.9% 1,000 ML IV PRN (08:06)
[2020-05-15] MEDS: CHOLECALCIFEROL 1,000 UNIT TABLET PO SCH (08:38)
[2020-05-15] MEDS: amLODIPine 10 MG TABLET PO SCH (08:38)
[2020-05-15] MEDS: ACETAMINOPHEN 325 MG TABLET PO PRN ×2 (08:39→21:57)
[2020-05-15] MEDS: carvediloL 12.5 MG TABLET PO SCH ×2 (08:39→21:56)
[2020-05-15] MEDS: allopurinoL 100 MG TABLET PO SCH (08:39)
[2020-05-15] MEDS: LOSARTAN 50 MG TABLET PO SCH (08:39)
[2020-05-15] MEDS: ATORVASTATIN 40 MG TABLET PO SCH (08:39)
[2020-05-15] MEDS: BISACODYL 10 MG SUPP RECTAL ONE ×2 (12:27→15:42)
[2020-05-15 14:28] LABS: INR 1.5; PT Patient Result 15.9 SECS (9.8-11.9)
[2020-05-15] MEDS: VANCOMYCIN INJ 1,500 MG in SODIUM CHLORIDE 0.9% 500 ML IV SCH (15:42)
[2020-05-15] MEDS: DOCUSATE SODIUM 100 MG CAPSULE PO SCH (21:56)
[2020-05-15] MEDS: POLYETHYLENE GLYCOL POWDER 17 GM PACK PO SCH (21:56)
[2020-05-16 05:49] LABS: INR 1.5; PT Patient Result 16.1 SECS (9.8-11.9)
[2020-05-16 06:02] LABS: Basophils % 0.4 % (0.0-0.8); Eosinophils # 0.1 10*3/uL (0.0-0.87); Eosinophils % 1.3 % (0.00-10.9); Hematocrit 25.7 VOL% (42.0-52.0); Immature Granulocytes % 0.7 %; Immature Granulocytes Absolute 0.07 #; Lymphocytes # 1.2 10*3/uL (1.4-4.0); Lymphocytes % 12.3 % (21.2-54.2); Mean Corpuscular HGB Conc 33.5 GM/DL (32-36); Mean Corpuscular Volume 83.4 FL (87-102); Mean Platelet Volume 10.2 FL (9.6-12.0); Monocytes % 7.4 % (1.7-12.7); Neutrophils % 77.9 % (38.7-73.9); Platelet Count 409 T/CUMM (130-400); Red Cell Distribution Width 16.6 % (9.3-17.3); White Blood Count 9.7 T/CUMM (4-12)
[2020-05-16 06:03] LABS: Calcium 8.4 MG/DL (8.5-10.1); Osmolality,Calculated 295.4 MOS/KG (273-304)
[2020-05-16 06:15] LABS: Hemoglobin 8.6 GM/DL (14.0-18.0); Red Blood Count 3.08 MC/CUMM (3.8-5.5)
[2020-05-16 06:51] LABS: Eosinophils 1 % (0-10); Lymphocytes 17 % (20-55); Segmented Neutrophils 76 % (50-85); Total Cells Counted 100
[2020-05-16 06:52] LABS: Anisocytosis 1+; Hypochromasia 1+; Target Cells Few
[2020-05-16 06:53] LABS: Platelet Estimate Increased
[2020-05-16] MEDS: POLYETHYLENE GLYCOL POWDER 17 GM PACK PO SCH ×2 (09:22→21:19)
[2020-05-16] MEDS: ATORVASTATIN 40 MG TABLET PO SCH (09:25)
[2020-05-16] MEDS: allopurinoL 100 MG TABLET PO SCH (09:25)
[2020-05-16] MEDS: CHOLECALCIFEROL 1,000 UNIT TABLET PO SCH (09:25)
[2020-05-16] MEDS: ACETAMINOPHEN 325 MG TABLET PO PRN ×2 (09:26→17:35)
[2020-05-16] MEDS: LOSARTAN 50 MG TABLET PO SCH (09:26)
[2020-05-16] MEDS: DOCUSATE SODIUM 100 MG CAPSULE PO SCH ×2 (09:26→21:19)
[2020-05-16] MEDS: CYCLOBENZAPRINE 10 MG TABLET PO PRN (09:26)
[2020-05-16] MEDS: carvediloL 12.5 MG TABLET PO SCH ×2 (09:26→21:19)
[2020-05-16] MEDS: amLODIPine 10 MG TABLET PO SCH (09:27)
[2020-05-16] MEDS: VANCOMYCIN INJ 1,500 MG in SODIUM CHLORIDE 0.9% 500 ML IV SCH (15:55)
[2020-05-16] MEDS ORDERED: WARFARIN 5 MG TABLET PO SCH (18:00)
[2020-05-17 06:17] LABS: Basophils % 0.3 % (0.0-0.8); Eosinophils # 0.1 10*3/uL (0.0-0.87); Eosinophils % 1.4 % (0.00-10.9); Hematocrit 25.9 VOL% (42.0-52.0); Hemoglobin 8.6 GM/DL (14.0-18.0); Immature Granulocytes % 0.5 %; Immature Granulocytes Absolute 0.05 #; Lymphocytes # 1.4 10*3/uL (1.4-4.0); Lymphocytes % 13.7 % (21.2-54.2); Mean Corpuscular HGB Conc 33.2 GM/DL (32-36); Mean Corpuscular Volume 83.3 FL (87-102); Mean Platelet Volume 10.6 FL (9.6-12.0); Monocytes % 7.4 % (1.7-12.7); Neutrophils % 76.7 % (38.7-73.9); Platelet Count 459 T/CUMM (130-400); Red Blood Count 3.11 MC/CUMM (3.8-5.5); Red Cell Distribution Width 16.9 % (9.3-17.3)
[2020-05-17 06:38] LABS: Hypochromasia 1+; Microcytosis Slight; Platelet Estimate Adequate; Target Cells Few
[2020-05-17 06:41] LABS: INR 1.8; PT Patient Result 18.4 SECS (9.8-11.9)
[2020-05-17 06:42] LABS: Calcium 8.6 MG/DL (8.5-10.1); Osmolality,Calculated 289.7 MOS/KG (273-304)
[2020-05-17] MEDS: LOSARTAN 50 MG TABLET PO SCH (08:19)
[2020-05-17] MEDS: POLYETHYLENE GLYCOL POWDER 17 GM PACK PO SCH ×2 (08:19→20:37)
[2020-05-17] MEDS: CHOLECALCIFEROL 1,000 UNIT TABLET PO SCH (08:19)
[2020-05-17] MEDS: amLODIPine 10 MG TABLET PO SCH (08:19)
[2020-05-17] MEDS: carvediloL 12.5 MG TABLET PO SCH ×2 (08:19→20:37)
[2020-05-17] MEDS: ATORVASTATIN 40 MG TABLET PO SCH (08:19)
[2020-05-17] MEDS: allopurinoL 100 MG TABLET PO SCH (08:19)
[2020-05-17] MEDS: DOCUSATE SODIUM 100 MG CAPSULE PO SCH ×2 (08:19→20:38)
[2020-05-17] MEDS: ACETAMINOPHEN 325 MG TABLET PO PRN ×3 (09:41→20:37)
[2020-05-17] MEDS: VANCOMYCIN INJ 1,500 MG in SODIUM CHLORIDE 0.9% 500 ML IV SCH (15:01)
[2020-05-17] MEDS: CYCLOBENZAPRINE 10 MG TABLET PO PRN (20:37)
[2020-05-17] MEDS: WARFARIN 3 MG TABLET PO SCH (20:38)
[2020-05-17] MEDS: methylPREDNISolone SOD SUC 40 MG/1 ML VIAL IV SCH (20:38)
[2020-05-18 05:15] LABS: Basophils % 0.2 % (0.0-0.8); Eosinophils % 0.1 % (0.00-10.9); Hematocrit 24.9 VOL% (42.0-52.0); Hemoglobin 8.1 GM/DL (14.0-18.0); Immature Granulocytes % 0.5 %; Immature Granulocytes Absolute 0.06 #; Lymphocytes # 0.8 10*3/uL (1.4-4.0); Lymphocytes % 7.1 % (21.2-54.2); Mean Corpuscular HGB Conc 32.5 GM/DL (32-36); Mean Corpuscular Volume 84.4 FL (87-102); Mean Platelet Volume 10.3 FL (9.6-12.0); Monocytes % 2.1 % (1.7-12.7); Platelet Count 495 T/CUMM (130-400); Red Blood Count 2.95 MC/CUMM (3.8-5.5); Red Cell Distribution Width 17.7 % (9.3-17.3)
[2020-05-18 05:47] LABS: Calcium 9.3 MG/DL (8.5-10.1); Osmolality,Calculated 286.1 MOS/KG (273-304)
[2020-05-18] MEDS: POLYETHYLENE GLYCOL POWDER 17 GM PACK PO SCH ×2 (08:52→20:31)
[2020-05-18] MEDS: CHOLECALCIFEROL 1,000 UNIT TABLET PO SCH (08:52)
[2020-05-18] MEDS: carvediloL 12.5 MG TABLET PO SCH ×2 (08:53→20:32)
[2020-05-18] MEDS: LOSARTAN 50 MG TABLET PO SCH (08:53)
[2020-05-18] MEDS: ATORVASTATIN 40 MG TABLET PO SCH (08:54)
[2020-05-18] MEDS: DOCUSATE SODIUM 100 MG CAPSULE PO SCH ×2 (08:54→20:32)
[2020-05-18] MEDS: allopurinoL 100 MG TABLET PO SCH (08:54)
[2020-05-18] MEDS: methylPREDNISolone SOD SUC 40 MG/1 ML VIAL IV SCH ×2 (08:54→20:32)
[2020-05-18] MEDS: amLODIPine 10 MG TABLET PO SCH (08:54)
[2020-05-18] MEDS ORDERED: SODIUM POLYSTYRENE SULFATE 15 GM/60 ML BOTTLE PO ONE (12:00)
[2020-05-18] MEDS: VANCOMYCIN INJ 1,500 MG in SODIUM CHLORIDE 0.9% 500 ML IV SCH (13:10)
[2020-05-18] MEDS: ACETAMINOPHEN 325 MG TABLET PO PRN (20:32)
[2020-05-18] MEDS: CYCLOBENZAPRINE 10 MG TABLET PO PRN (20:32)
[2020-05-18] MEDS: WARFARIN 3 MG TABLET PO SCH (20:32)
[2020-05-19 05:50] LABS: Basophils % 0.1 % (0.0-0.8); Hematocrit 25.1 VOL% (42.0-52.0); Hemoglobin 8.3 GM/DL (14.0-18.0); Immature Granulocytes % 0.6 %; Immature Granulocytes Absolute 0.06 #; Lymphocytes # 0.8 10*3/uL (1.4-4.0); Mean Corpuscular HGB Conc 33.1 GM/DL (32-36); Mean Corpuscular Volume 83.4 FL (87-102); Mean Platelet Volume 10.7 FL (9.6-12.0); Monocytes % 2.9 % (1.7-12.7); Neutrophils % 88.4 % (38.7-73.9); Platelet Count 503 T/CUMM (130-400); Red Blood Count 3.01 MC/CUMM (3.8-5.5); Red Cell Distribution Width 18.1 % (9.3-17.3); White Blood Count 9.9 T/CUMM (4-12)
[2020-05-19 06:14] LABS: Osmolality,Calculated 289.1 MOS/KG (273-304)
[2020-05-19 06:20] LABS: Albumin 1.2 G/DL (3.4-5.0); Bilirubin,Direct 0.58 MG/DL (0.0-0.20); Bilirubin,Indirect 1.2 MG/DL (0.0-1.0); Bilirubin,Total 1.8 MG/DL (0.2-1.0); Total Protein 6.8 G/DL (6.4-8.3)
[2020-05-19] MEDS: allopurinoL 100 MG TABLET PO SCH (08:32)
[2020-05-19] MEDS: carvediloL 12.5 MG TABLET PO SCH ×2 (08:32→21:55)
[2020-05-19] MEDS: DOCUSATE SODIUM 100 MG CAPSULE PO SCH (08:33)
[2020-05-19] MEDS: amLODIPine 10 MG TABLET PO SCH (08:33)
[2020-05-19] MEDS: ATORVASTATIN 40 MG TABLET PO SCH (08:33)
[2020-05-19] MEDS: methylPREDNISolone SOD SUC 40 MG/1 ML VIAL IV SCH ×2 (08:33→21:50)
[2020-05-19] MEDS: LOSARTAN 50 MG TABLET PO SCH (08:33)
[2020-05-19] MEDS: CHOLECALCIFEROL 1,000 UNIT TABLET PO SCH (08:33)
[2020-05-19] MEDS: POLYETHYLENE GLYCOL POWDER 17 GM PACK PO SCH ×2 (08:37→21:55)
[2020-05-19 11:20] LABS: INR 2.7; PT Patient Result 27.2 SECS (9.8-11.9)
[2020-05-19] MEDS: VANCOMYCIN INJ 1,500 MG in SODIUM CHLORIDE 0.9% 500 ML IV SCH (13:52)
[2020-05-19] MEDS: DOCUSATE SODIUM 100 MG/10 ML UDCUP PO SCH (21:54)
[2020-05-19] MEDS: WARFARIN 3 MG TABLET PO SCH (21:55)
[2020-05-20] MEDS: LOSARTAN 50 MG TABLET PO SCH (08:02)
[2020-05-20] MEDS: ATORVASTATIN 40 MG TABLET PO SCH (08:02)
[2020-05-20] MEDS: allopurinoL 100 MG TABLET PO SCH (08:03)
[2020-05-20] MEDS: carvediloL 12.5 MG TABLET PO SCH ×2 (08:03→21:36)
[2020-05-20] MEDS: CHOLECALCIFEROL 1,000 UNIT TABLET PO SCH (08:03)
[2020-05-20] MEDS: amLODIPine 10 MG TABLET PO SCH (08:03)
[2020-05-20] MEDS: DOCUSATE SODIUM 100 MG/10 ML UDCUP PO SCH ×2 (08:03→21:36)
[2020-05-20] MEDS: methylPREDNISolone SOD SUC 40 MG/1 ML VIAL IV SCH ×2 (08:04→21:37)
[2020-05-20] MEDS: POLYETHYLENE GLYCOL POWDER 17 GM PACK PO SCH ×2 (10:08→21:36)
[2020-05-20] MEDS: VANCOMYCIN INJ 1,500 MG in SODIUM CHLORIDE 0.9% 500 ML IV SCH (14:36)
[2020-05-20] MEDS: WARFARIN 3 MG TABLET PO SCH (21:36)
[2020-05-21 06:13] LABS: Basophils % 0.1 % (0.0-0.8); Hematocrit 27.5 VOL% (42.0-52.0); Hemoglobin 8.9 GM/DL (14.0-18.0); Immature Granulocytes % 1.3 %; Immature Granulocytes Absolute 0.14 #; Lymphocytes # 1.1 10*3/uL (1.4-4.0); Lymphocytes % 10.8 % (21.2-54.2); Mean Corpuscular HGB Conc 32.4 GM/DL (32-36); Mean Corpuscular Volume 85.1 FL (87-102); Mean Platelet Volume 9.9 FL (9.6-12.0); Monocytes % 6.2 % (1.7-12.7); Neutrophils % 81.6 % (38.7-73.9); Platelet Count 617 T/CUMM (130-400); Red Blood Count 3.23 MC/CUMM (3.8-5.5); Red Cell Distribution Width 18.4 % (9.3-17.3); White Blood Count 10.4 T/CUMM (4-12)
[2020-05-21 06:30] LABS: Calcium 9.3 MG/DL (8.5-10.1)
[2020-05-21] MEDS: carvediloL 12.5 MG TABLET PO SCH ×3 (07:52→21:50)
[2020-05-21] MEDS: DOCUSATE SODIUM 100 MG/10 ML UDCUP PO SCH ×2 (07:52→08:06)
[2020-05-21] MEDS: LOSARTAN 50 MG TABLET PO SCH ×2 (07:53→08:06)
[2020-05-21] MEDS: POLYETHYLENE GLYCOL POWDER 17 GM PACK PO SCH ×2 (07:53→08:07)
[2020-05-21] MEDS: ATORVASTATIN 40 MG TABLET PO SCH ×2 (07:53→08:07)
[2020-05-21] MEDS: CHOLECALCIFEROL 1,000 UNIT TABLET PO SCH ×2 (07:54→08:07)
[2020-05-21] MEDS: amLODIPine 10 MG TABLET PO SCH ×2 (07:54→08:07)
[2020-05-21] MEDS: allopurinoL 100 MG TABLET PO SCH ×2 (07:54→08:07)
[2020-05-21] MEDS: methylPREDNISolone SOD SUC 40 MG/1 ML VIAL IV SCH ×3 (07:55→21:51)
[2020-05-21 13:43] LABS: INR 2.2
[2020-05-21 13:44] LABS: PT Patient Result 22.4 SECS (9.8-11.9)
[2020-05-21] MEDS: VANCOMYCIN INJ 1,500 MG in SODIUM CHLORIDE 0.9% 500 ML IV SCH (14:13)
[2020-05-21] MEDS: WARFARIN 3 MG TABLET PO SCH (21:50)
[2020-05-22 05:49] LABS: Basophils % 0.2 % (0.0-0.8); Eosinophils % 0.3 % (0.00-10.9); Hemoglobin 9.1 GM/DL (14.0-18.0); Immature Granulocytes % 1.3 %; Immature Granulocytes Absolute 0.15 #; Lymphocytes # 1.1 10*3/uL (1.4-4.0); Lymphocytes % 9.7 % (21.2-54.2); Mean Corpuscular HGB Conc 32.5 GM/DL (32-36); Mean Corpuscular Volume 85.1 FL (87-102); Mean Platelet Volume 10.3 FL (9.6-12.0); Monocytes % 4.8 % (1.7-12.7); Neutrophils % 83.7 % (38.7-73.9); Platelet Count 672 T/CUMM (130-400); Red Blood Count 3.29 MC/CUMM (3.8-5.5); Red Cell Distribution Width 18.5 % (9.3-17.3); White Blood Count 11.4 T/CUMM (4-12)
[2020-05-22 05:53] LABS: PT Patient Result 20.3 SECS (9.8-11.9)
[2020-05-22 06:07] LABS: Calcium 9.1 MG/DL (8.5-10.1); Osmolality,Calculated 284.2 MOS/KG (273-304)
[2020-05-22] MEDS: POLYETHYLENE GLYCOL POWDER 17 GM PACK PO SCH (09:00)
[2020-05-22] MEDS: CHOLECALCIFEROL 1,000 UNIT TABLET PO SCH (09:01)
[2020-05-22] MEDS: methylPREDNISolone SOD SUC 40 MG/1 ML VIAL IV SCH (09:01)
[2020-05-22] MEDS: LOSARTAN 50 MG TABLET PO SCH (09:01)
[2020-05-22] MEDS: ATORVASTATIN 40 MG TABLET PO SCH (09:01)
[2020-05-22] MEDS: amLODIPine 10 MG TABLET PO SCH (09:02)
[2020-05-22] MEDS: carvediloL 12.5 MG TABLET PO SCH ×2 (09:02→21:35)
[2020-05-22] MEDS: allopurinoL 100 MG TABLET PO SCH (09:02)
[2020-05-22] MEDS: WARFARIN 3 MG TABLET PO SCH (21:35)
[2020-05-23 05:21] LABS: Basophils % 0.1 % (0.0-0.8); Eosinophils # 0.2 10*3/uL (0.0-0.87); Eosinophils % 1.2 % (0.00-10.9); Hematocrit 29.1 VOL% (42.0-52.0); Hemoglobin 9.7 GM/DL (14.0-18.0); Immature Granulocytes % 0.8 %; Lymphocytes # 2.7 10*3/uL (1.4-4.0); Lymphocytes % 22.1 % (21.2-54.2); Mean Corpuscular HGB Conc 33.3 GM/DL (32-36); Mean Corpuscular Volume 83.9 FL (87-102); Mean Platelet Volume 9.9 FL (9.6-12.0); Monocytes % 6.1 % (1.7-12.7); Neutrophils % 69.7 % (38.7-73.9); Platelet Count 646 T/CUMM (130-400); Red Blood Count 3.47 MC/CUMM (3.8-5.5); Red Cell Distribution Width 18.6 % (9.3-17.3); White Blood Count 12.1 T/CUMM (4-12)
[2020-05-23 05:47] LABS: Calcium 9.4 MG/DL (8.5-10.1); Osmolality,Calculated 282.1 MOS/KG (273-304)
[2020-05-23] MEDS: LOSARTAN 50 MG TABLET PO SCH (09:38)
[2020-05-23] MEDS: ATORVASTATIN 40 MG TABLET PO SCH (09:38)
[2020-05-23] MEDS: CHOLECALCIFEROL 1,000 UNIT TABLET PO SCH (09:38)
[2020-05-23] MEDS: amLODIPine 10 MG TABLET PO SCH (09:38)
[2020-05-23] MEDS: allopurinoL 100 MG TABLET PO SCH (09:39)
[2020-05-23] MEDS: carvediloL 12.5 MG TABLET PO SCH ×2 (09:39→20:45)
[2020-05-23] MEDS: POLYETHYLENE GLYCOL POWDER 17 GM PACK PO SCH (09:39)
[2020-05-23] MEDS ORDERED: LIDOCAINE 1% 20 ML VIAL MISC INJ ONE (13:30)
[2020-05-23] MEDS ORDERED: methylPREDNISolone ACETATE 40 MG/1 ML VIAL INTRAARTIC ONE (13:30)
[2020-05-23] MEDS: WARFARIN 3 MG TABLET PO SCH (20:45)
[2020-05-24 05:20] LABS: Basophils % 0.4 % (0.0-0.8); Eosinophils # 0.3 10*3/uL (0.0-0.87); Eosinophils % 2.2 % (0.00-10.9); Hematocrit 26.8 VOL% (42.0-52.0); Hemoglobin 8.7 GM/DL (14.0-18.0); Immature Granulocytes % 1.1 %; Immature Granulocytes Absolute 0.12 #; Lymphocytes # 1.7 10*3/uL (1.4-4.0); Lymphocytes % 15.2 % (21.2-54.2); Mean Corpuscular HGB Conc 32.5 GM/DL (32-36); Mean Corpuscular Volume 85.1 FL (87-102); Mean Platelet Volume 9.8 FL (9.6-12.0); Monocytes % 6.3 % (1.7-12.7); Neutrophils % 74.8 % (38.7-73.9); Platelet Count 556 T/CUMM (130-400); Red Blood Count 3.15 MC/CUMM (3.8-5.5); Red Cell Distribution Width 18.7 % (9.3-17.3); White Blood Count 11.2 T/CUMM (4-12)
[2020-05-24 05:36] LABS: INR 1.7; PT Patient Result 18.2 SECS (9.8-11.9)
[2020-05-24 05:41] LABS: Calcium 8.1 MG/DL (8.5-10.1)
[2020-05-24] MEDS: ATORVASTATIN 40 MG TABLET PO SCH (08:51)
[2020-05-24] MEDS: amLODIPine 10 MG TABLET PO SCH (08:51)
[2020-05-24] MEDS: allopurinoL 100 MG TABLET PO SCH (08:51)
[2020-05-24] MEDS: LOSARTAN 50 MG TABLET PO SCH (08:51)
[2020-05-24] MEDS: CHOLECALCIFEROL 1,000 UNIT TABLET PO SCH (08:51)
[2020-05-24] MEDS: carvediloL 12.5 MG TABLET PO SCH (08:51)
[2020-05-24] MEDS: POLYETHYLENE GLYCOL POWDER 17 GM PACK PO SCH (09:18)
[2020-05-24 11:40] VITALS: BP 114/70
[2020-05-24] MEDS ORDERED: VANCOMYCIN INJ 1,500 MG in SODIUM CHLORIDE 0.9% 500 ML IV ONE (12:00)
== END 2020-05-24 14:22 | disposition home or self-care (01) | DRG 871 ==
LOC: SUATTDRO 19:30 → N.2E 22:11 → N.2W 04-27 08:38 → N.2E 05-03 14:07 → N.2W 05-03 14:44 → N.2E 05-03 14:45
PROVIDERS: ADMIT Internal Medicine; ATTEND Internal Medicine Geriatric Medicine